=== PATIENT | female | born 1965 | race African-American/Black ===

== ENCOUNTER 2018-01-16 12:29 | Emergency (ER) | payer MEDICARE, MEDICAID ==
[~2018-01-16] VITALS: Ht 175.3 cm; Wt 128.3 kg
[2018-01-16 13:21] VITALS: BP 160/90
[2018-01-16] MEDS ORDERED: rabies immune globulin/PF 150 unit/ml inj IMVAC STA (13:40)
[2018-01-16] MEDS ORDERED: rabies vaccine (PCEC)/PF 2.5 unit kit IMVAC ONE (13:40)
[2018-01-19] MEDS ORDERED: rabies vaccine (PCEC)/PF 2.5 unit kit IMVAC ONE (09:15)
== END 2018-01-16 15:03 | disposition home or self-care (01) ==
LOC: ER 12:29
DX: S60.361A Insect bite (nonvenomous) of right thumb, initial encounter (principal); W53.11XA Bitten by rat, initial encounter; Y93.89 Activity, other specified; Y92.89 Other specified places as the place of occurrence of the external cause; Y99.8 Other external cause status
CPT/HCPCS: 90375; 90471; 90715; 96372; 99284

== ENCOUNTER 2018-01-19 09:09 | Emergency (ER) | payer MEDICARE, MEDICAID ==
[~2018-01-19] VITALS: Ht 175.3 cm; Wt 130.0 kg
[2018-01-19 09:47] VITALS: BP 138/79
[2018-01-19] MEDS ORDERED: rabies vaccine (PCEC)/PF 2.5 unit kit IMVAC ONE (09:55)
== END 2018-01-19 10:23 | disposition home or self-care (01) ==
LOC: ER 09:09
DX: Z23 Encounter for immunization (principal)
CPT/HCPCS: 90471; 90675; 99283

== ENCOUNTER 2018-01-23 07:41 | Emergency (ER) | payer MEDICARE, MEDICAID ==
[2018-01-23 07:57] VITALS: BP 142/95
[2018-01-23] MEDS ORDERED: ZOL50T PO (08:00)
[2018-01-23] MEDS ORDERED: rabies vaccine (PCEC)/PF 2.5 unit kit IMVAC ONE (08:15)
== END 2018-01-23 08:40 | disposition home or self-care (01) ==
LOC: ER 07:41
DX: Z23 Encounter for immunization (principal)
CPT/HCPCS: 90471; 90675; 99283

== ENCOUNTER 2018-01-30 11:37 | Emergency (ER) | payer MEDICARE, MEDICAID ==
[~2018-01-30] VITALS: Ht 175.3 cm; Wt 130.0 kg
[~2018-01-30 11:37] MED LIST: ZOL50T PO
[2018-01-30 11:41] VITALS: BP 139/80
[2018-01-30] MEDS ORDERED: rabies vaccine (PCEC)/PF 2.5 unit kit IMVAC ONE (12:35)
== END 2018-01-30 12:50 | disposition home or self-care (01) ==
LOC: ER 11:37
DX: Z23 Encounter for immunization (principal); Z86.73 Personal history of transient ischemic attack (TIA), and cerebral infarction without residual deficits; Z98.890 Other specified postprocedural states; Z79.899 Other long term (current) drug therapy
CPT/HCPCS: 90471; 90675; 99283

== ENCOUNTER 2018-05-03 08:42 | Emergency (ER) | payer MEDICARE, MEDICAID ==
[~2018-05-03] VITALS: Ht 175.3 cm; Wt 127.3 kg
[2018-05-03 09:06] VITALS: BP 162/94
[2018-05-03] MEDS ORDERED: CARB15DR91 EACH EAR (09:18)
[2018-05-03] MEDS ORDERED: benzonatate 100mg capsule PO ONE (09:20)
[2018-05-03] MEDS ORDERED: ibuprofen tablet 400 MG TABLET PO ONE (09:20)
[2018-05-03] MEDS ORDERED: pseudoephedrine 30mg tablet PO ONE (09:20)
== END 2018-05-03 09:35 | disposition home or self-care (01) ==
LOC: ER 08:43
DX: J06.9 Acute upper respiratory infection, unspecified (principal); H61.23 Impacted cerumen, bilateral; Z86.73 Personal history of transient ischemic attack (TIA), and cerebral infarction without residual deficits
CPT/HCPCS: 99282

== ENCOUNTER 2018-05-20 09:56 | Emergency (ER) | payer MEDICARE, MEDICAID ==
[~2018-05-20] VITALS: Ht 175.3 cm; Wt 130.0 kg
[~2018-05-20 09:56] MED LIST changes: +CARB15DR91 EACH EAR
[2018-05-20 10:04] VITALS: BP 129/70
[2018-05-20 10:37] LABS: URINE HCG NEGATIVE (NEG)
[2018-05-20 10:40] LABS: COLOR,URINE YELLOW (Yellow); GLUCOSE, URINE NEGATIVE (Neg); KETONES,URINE TRACE mg/dl (Neg); LEUKOCYTE ESTERASE ,URINE NEGATIVE (Neg); NITRITES, URINE NEGATIVE (Neg); OCCULT BLOOD,URINE NEGATIVE (Neg); PROTEIN,URINE NEGATIVE (Neg); UROBILINOGEN,URINE 0.2 E.U/dL (0.2-1.0)
[2018-05-20 10:42] LABS: UA COLLECTION TYPE CLN CATCH MIDSTREAM
[2018-05-20 10:43] LABS: CLARITY,URINE SLIGHTLY CLOUDY (Clear)
[2018-05-20 10:46] LABS: BACTERIA,URINE 1+ /HPF (Neg); MUCUS STRANDS FEW /LPF (Neg); RBC,URINE NONE SEEN /HPF (0-2); SQUAMOUS EPITHELIAL CELL,UR MANY /LPF (FEW); WBC,URINE 0-4 /HPF (0-4)
[2018-05-20 12:25] LABS: BASOPHILS % (AUTO) 0.3 % (0-1); EOSINOPHILS # (AUTO) 0.1 X10'3 (0-0.9); EOSINOPHILS % (AUTO) 1.2 % (0-6); HEMATOCRIT 35.3 % (35.0-45.0); HEMOGLOBIN 11.3 g/dl (12.0-16.0); LYMPHOCYTES # (AUTO) 1.8 X10'3 (1.1-4.8); LYMPHOCYTES % (AUTO) 17.3 % (21-51); MEAN CORPUSCULAR HEMOGLOBIN 24.1 PG (27.0-31.0); MEAN CORPUSCULAR VOLUME 75.2 FL (78-98); MEAN PLATELET VOLUME 10.6 FL (7.4-10.4); MONOCYTES # (AUTO) 0.1 X10'3 (0-0.9); MONOCYTES % (AUTO) 0.8 % (2-12); NEUTROPHILS # (AUTO) 8.4 X10'3 (1.8-7.7); NEUTROPHILS % (AUTO) 80.4 % (42-75); PLATELET COUNT 303 X10'3 (140-440); RED CELL DISTRIBUTION WIDTH 19.4 % (11.5-14.5); WHITE BLOOD COUNT 10.4 X10'3 (4.5-11.0)
[2018-05-20 12:34] LABS: PARTIAL THROMBOPLASTIN TIME 26 SECONDS (22-32)
[2018-05-20 12:40] LABS: ALANINE AMINOTRANSFERASE 13 U/L (12-78); ALBUMIN 3.1 G/DL (3.4-5.0); ALBUMIN/GLOBULIN RATIO 0.7 (1.1-1.5); ALKALINE PHOSPHATASE 113 IU/L (46-116); ANION GAP 11 (8-16); ASPARTATE AMINO TRANSFERASE 20 U/L (10-37); BILIRUBIN,TOTAL 0.2 MG/DL (0.1-1.0); BLOOD UREA NITROGEN 9 MG/DL (7-18); BUN/CREATININE RATIO 11.4 (6.6-38.0); CHLORIDE 104 MMOL/L (99-107); CREATININE 0.79 MG/DL (0.40-0.90); GLUCOSE 97 MG/DL (70-104); POTASSIUM 3.8 MMOL/L (3.5-5.1); SODIUM 137 MMOL/L (135-145); TOTAL CARBON DIOXIDE 21.7 MMOL/L (24-32); TOTAL PROTEIN 7.4 G/DL (6.4-8.2); eGFR > 90 ML/MIN
[2018-05-20 13:10] LABS: PLATELET ESTIMATE NORMAL
[2018-05-20 13:15] LABS: ANISOCYTOSIS 2+; HYPOCHROMASIA 1+; LARGE PLATELETS FEW
[2018-05-20 13:16] LABS: MICROCYTOSIS 1+
== END 2018-05-20 13:10 | disposition home or self-care (01) ==
LOC: ER 09:56
DX: R42 Dizziness and giddiness (principal); R53.83 Other fatigue; R11.0 Nausea; R51 Headache; R63.0 Anorexia; Z86.73 Personal history of transient ischemic attack (TIA), and cerebral infarction without residual deficits; Z98.890 Other specified postprocedural states; Z79.899 Other long term (current) drug therapy
CPT/HCPCS: 36415; 70450; 71045; 80053; 81001; 81025; 84484; 85025; 85610; 85730; 93005; 99285

== ENCOUNTER 2018-05-23 02:14 | Emergency (ER) | payer MEDICARE, MEDICAID ==
[~2018-05-23] VITALS: Ht 175.3 cm; Wt 109.3 kg
[2018-05-23] MEDS ORDERED: LORazepam 1 MG tablet PO ONE (03:50)
[2018-05-23] MEDS ORDERED: ZOLP5TAB2 PO (04:09)
[2018-05-23 04:14] VITALS: BP 159/95
== END 2018-05-23 04:17 | disposition home or self-care (01) ==
LOC: ER 02:14
DX: F41.9 Anxiety disorder, unspecified (principal); R45.0 Nervousness; I25.2 Old myocardial infarction; F32.9 Major depressive disorder, single episode, unspecified; Z86.73 Personal history of transient ischemic attack (TIA), and cerebral infarction without residual deficits; Z98.890 Other specified postprocedural states; Z79.899 Other long term (current) drug therapy
CPT/HCPCS: 99284

== ENCOUNTER 2021-10-24 13:02 | Emergency (ER) | payer MEDICARE, MEDICAID ==
[~2021-10-24] VITALS: Ht 175.3 cm; Wt 150.0 kg
[~2021-10-24 13:02] MED LIST changes: +SERT-153 PO; -ZOL50T PO; +ZOLP5TAB2 PO
[2021-10-24] MEDS ORDERED: morphine 2 MG/ML inj. syringe IV PRN (15:00)
[2021-10-24] MEDS ORDERED: ketorolac tromethamine 15mg/ml inj. IV ONE (16:05)
[2021-10-24] MEDS ORDERED: CYCL-1 PO (16:25)
[2021-10-24 17:00] VITALS: BP 140/80
== END 2021-10-24 17:02 | disposition home or self-care (01) ==
LOC: ER 13:02
DX: S30.0XXA Contusion of lower back and pelvis, initial encounter (principal); S09.90XA Unspecified injury of head, initial encounter; R51.9 Headache, unspecified; I25.10 Atherosclerotic heart disease of native coronary artery without angina pectoris; E78.00 Pure hypercholesterolemia, unspecified; F32.A Depression, unspecified; Z86.73 Personal history of transient ischemic attack (TIA), and cerebral infarction without residual deficits; Z98.890 Other specified postprocedural states; Z79.899 Other long term (current) drug therapy; W19.XXXA Unspecified fall, initial encounter; Y93.89 Activity, other specified; Y92.89 Other specified places as the place of occurrence of the external cause; Y99.8 Other external cause status
CPT/HCPCS: 70450; 72125; 72128; 96374; 96375; 99284; J1885; J2270

== ENCOUNTER 2021-12-29 08:47 | Emergency (ER) | payer MEDICARE, MEDICAID ==
[~2021-12-29] VITALS: Ht 175.3 cm; Wt 100.0 kg
[~2021-12-29 08:47] MED LIST changes: +CYCL-1 PO
--- NOTE | 2021-12-29 09:37 | NUR ---
provider at bedside.
[2021-12-29] MEDS ORDERED: ibuprofen tablet 400 MG TABLET PO ONE (10:00)
[2021-12-29 10:26] VITALS: BP 137/97
== END 2021-12-29 10:27 | disposition home or self-care (01) ==
LOC: ER 08:47
DX: F07.81 Postconcussional syndrome (principal); I25.10 Atherosclerotic heart disease of native coronary artery without angina pectoris; E78.00 Pure hypercholesterolemia, unspecified; I25.2 Old myocardial infarction; Z86.73 Personal history of transient ischemic attack (TIA), and cerebral infarction without residual deficits; Z98.891 History of uterine scar from previous surgery; Z79.899 Other long term (current) drug therapy; Z59.00 Homelessness unspecified
CPT/HCPCS: 99281

== ENCOUNTER 2022-08-08 07:20 | Emergency (ER) | payer MEDICARE, MEDICAID ==
[~2022-08-08] VITALS: Ht 175.3 cm; Wt 142.0 kg
[2022-08-08 08:22] LABS: BASOPHILS # (AUTO) 0.1 X10'3 (0-0.2); EOSINOPHILS # (AUTO) 0.1 X10'3 (0-0.9); EOSINOPHILS % (AUTO) 1.5 % (0-6); HEMATOCRIT 41.4 % (35.0-45.0); HEMOGLOBIN 13.2 g/dl (12.0-16.0); LYMPHOCYTES # (AUTO) 1.8 X10'3 (1.1-4.8); LYMPHOCYTES % (AUTO) 20.6 % (21-51); MEAN CORPUSCULAR HEMOGLOBIN 26.5 PG (27.0-31.0); MEAN CORPUSCULAR HGB CONC 31.8 g/dL (33.0-36.5); MEAN CORPUSCULAR VOLUME 83.4 FL (78-98); MEAN PLATELET VOLUME 9.4 FL (7.4-10.4); MONOCYTES # (AUTO) 0.5 X10'3 (0-0.9); MONOCYTES % (AUTO) 5.7 % (2-12); NEUTROPHILS # (AUTO) 6.1 X10'3 (1.8-7.7); NEUTROPHILS % (AUTO) 71.2 % (42-75); PLATELET COUNT 264 X10'3 (140-440); RED BLOOD COUNT 4.97 X10'6 (4.20-5.60); RED CELL DISTRIBUTION WIDTH 16.9 % (11.5-14.5); WHITE BLOOD COUNT 8.6 X10'3 (4.5-11.0)
--- NOTE | 2022-08-08 08:35 | NUR ---
I agree w/ RN Troy's assessment
[2022-08-08 08:38] LABS: ALANINE AMINOTRANSFERASE 14 U/L (12-78); ALBUMIN 3.3 G/DL (3.4-5.0); ALBUMIN/GLOBULIN RATIO 0.8 (1.1-1.5); ALKALINE PHOSPHATASE 121 IU/L (46-116); ANION GAP 5 (8-16); ASPARTATE AMINO TRANSFERASE 18 U/L (10-37); BILIRUBIN,TOTAL 0.4 MG/DL (0.1-1.0); BLOOD UREA NITROGEN 7 MG/DL (7-18); BUN/CREATININE RATIO 8.2 (6.6-38.0); CALCIUM 9.4 MG/DL (8.5-10.1); CHLORIDE 104 MMOL/L (99-107); CREATININE 0.85 MG/DL (0.40-0.90); GLUCOSE 102 MG/DL (70-104); LIPASE 93 U/L (73-393); POTASSIUM 3.8 MMOL/L (3.5-5.1); SODIUM 137 MMOL/L (135-145); TOTAL CARBON DIOXIDE 28.1 MMOL/L (24-32); TOTAL PROTEIN 7.7 G/DL (6.4-8.2); eGFR 84 ML/MIN
[2022-08-08 08:47] LABS: CLARITY,URINE CLOUDY (Clear); COLOR,URINE RED (Yellow); GLUCOSE, URINE NEGATIVE (Neg); KETONES,URINE TRACE mg/dl (Neg); LEUKOCYTE ESTERASE ,URINE SMALL (Neg); OCCULT BLOOD,URINE LARGE (Neg); PH,URINE 7.5 (4.8-8.0); PROTEIN,URINE 100 mg/dl (Neg); URINE HCG NEGATIVE (NEG); UROBILINOGEN,URINE 0.2 E.U/dL (0.2-1.0)
[2022-08-08 08:48] LABS: UA COLLECTION TYPE VOIDED
[2022-08-08 08:51] LABS: NITRITES, URINE NEGATIVE (Neg)
[2022-08-08 08:53] LABS: BACTERIA,URINE 1+ /HPF (Neg); MUCUS STRANDS NONE SEEN /LPF (Neg); RBC,URINE TNTC /HPF (0-2); SQUAMOUS EPITHELIAL CELL,UR MODERATE /LPF (FEW); WBC CLUMPS,URINE MODERATE /HPF (NEGATIVE)
[2022-08-08] MEDS ORDERED: cephalexin 500mg capsule PO ONE (09:20)
[2022-08-08] MEDS ORDERED: ibuprofen 200mg tablet PO ONE (11:35)
[2022-08-08 11:51] VITALS: BP 148/85
== END 2022-08-08 11:54 | disposition home or self-care (01) ==
LOC: ER 07:20
DX: N93.9 Abnormal uterine and vaginal bleeding, unspecified (principal); R22.9 Localized swelling, mass and lump, unspecified; I25.10 Atherosclerotic heart disease of native coronary artery without angina pectoris; E78.00 Pure hypercholesterolemia, unspecified; F32.A Depression, unspecified; Z98.890 Other specified postprocedural states; Z86.73 Personal history of transient ischemic attack (TIA), and cerebral infarction without residual deficits; Z79.899 Other long term (current) drug therapy
CPT/HCPCS: 36415; 76830; 76856; 80053; 81001; 81025; 83690; 85025; 87088; 93976; 99284

== ENCOUNTER 2023-06-29 21:32 | Emergency (ER) | payer MEDICARE, MEDICAID ==
[~2023-06-29] VITALS: Ht 182.9 cm; Wt 90.9 kg
[2023-06-29] MEDS ORDERED: normal saline 1000ML IV soln IVB ONE (22:25)
[2023-06-29] MEDS ORDERED: ondansetron/PF 4mg/2ml inj IV ONE (22:30)
[2023-06-29] MEDS ORDERED: morphine 4 MG/ML inj SYRINge IV ONE (22:30)
--- NOTE | 2023-06-29 22:59 | NUR ---
Ortega ([facility]) [phone]
[2023-06-30] LABS: HEMOGLOBIN 12.4 g/dl (12.0-16.0)
[2023-06-30] MEDS ORDERED: glycopyrrolate 0.2mg/ml inj IV ONE
[2023-06-30 00:03] LABS: BASOPHILS # (AUTO) 0.1 X10'3 (0-0.2); BASOPHILS % (AUTO) 0.4 % (0-1); EOSINOPHILS % (AUTO) 0.1 % (0-6); HEMATOCRIT 38.4 % (35.0-45.0); LYMPHOCYTES # (AUTO) 1.6 X10'3 (1.1-4.8); LYMPHOCYTES % (AUTO) 12.8 % (21-51); MEAN CORPUSCULAR HEMOGLOBIN 26.3 PG (27.0-31.0); MEAN CORPUSCULAR HGB CONC 32.2 g/dL (33.0-36.5); MEAN CORPUSCULAR VOLUME 81.7 FL (78-98); MONOCYTES # (AUTO) 0.8 X10'3 (0-0.9); MONOCYTES % (AUTO) 6.6 % (2-12); NEUTROPHILS # (AUTO) 10.1 X10'3 (1.8-7.7); NEUTROPHILS % (AUTO) 80.1 % (42-75); PLATELET COUNT 292 X10'3 (140-440); RED BLOOD COUNT 4.71 X10'6 (4.20-5.60); RED CELL DISTRIBUTION WIDTH 17.6 % (11.5-14.5); WHITE BLOOD COUNT 12.6 X10'3 (4.5-11.0)
[2023-06-30 00:17] LABS: ALANINE AMINOTRANSFERASE 14 U/L (12-78); ALBUMIN 3.2 G/DL (3.4-5.0); ALBUMIN/GLOBULIN RATIO 0.7 (1.1-1.5); ALKALINE PHOSPHATASE 146 IU/L (46-116); ANION GAP 8 (8-16); ASPARTATE AMINO TRANSFERASE 12 U/L (10-37); BILIRUBIN,TOTAL 0.3 MG/DL (0.1-1.0); BLOOD UREA NITROGEN 6 MG/DL (7-18); BUN/CREATININE RATIO 5.3 (10.0-20.0); CALCIUM 9.2 MG/DL (8.5-10.1); CHLORIDE 104 MMOL/L (99-107); CREATININE 1.13 MG/DL (0.40-0.90); GLUCOSE 123 MG/DL (70-104); POTASSIUM 3.7 MMOL/L (3.5-5.1); SODIUM 139 MMOL/L (135-145); TOTAL CARBON DIOXIDE 27.1 MMOL/L (24-32); TOTAL PROTEIN 7.8 G/DL (6.4-8.2); eCRCL 64 ML/MIN; eGFR 60 ML/MIN
[2023-06-30] MEDS ORDERED: iohexol 300mg/ml 100ml inj. ONE (00:36)
[2023-06-30 00:46] LABS: PROTHROMBIN TIME 10.3 SECONDS (9.0-12.0)
[2023-06-30 03:07] VITALS: BP 130/80; PULSE 90; RESP 16; TEMP 97.9; O2SAT 100
== END 2023-06-30 03:12 | disposition home or self-care (01) ==
LOC: ER 21:33
DX: R10.9 Unspecified abdominal pain (principal); K92.1 Melena; I11.0 Hypertensive heart disease with heart failure; Z86.2 Personal history of diseases of the blood and blood-forming organs and certain disorders involving the immune mechanism; Z98.890 Other specified postprocedural states; Z79.899 Other long term (current) drug therapy
CPT/HCPCS: 36415; 74177; 80053; 84145; 85025; 85610; 96361; 96374; 96375; 99285; J2270; J2405; J3490; J7030; Q9967

== ENCOUNTER 2024-01-17 05:55 | Emergency (ER) | payer MEDICARE, MEDICAID ==
[~2024-01-17] VITALS: Ht 175.3 cm; Wt 129.6 kg
[2024-01-17 06:09] VITALS: BP 148/98; PULSE 102; TEMP 97.5; O2SAT 99
[2024-01-17] MEDS ORDERED: ketorolac trometh inj. 60 MG/2 ML VIAL IM ONE (09:30)
[2024-01-17] MEDS ORDERED: AMOX-117 PO (09:33)
[2024-01-17] MEDS ORDERED: ketorolac tromethamine 15mg/ml inj. IM ONE (09:35)
[2024-01-17 09:42] VITALS: RESP 16
[2024-01-17] MEDS: ketorolac tromethamine 15mg/ml inj. IM ONE (09:42)
== END 2024-01-17 10:18 | disposition home or self-care (01) ==
LOC: ER 05:56
DX: K04.7 Periapical abscess without sinus (principal); K02.9 Dental caries, unspecified; I25.10 Atherosclerotic heart disease of native coronary artery without angina pectoris; E78.00 Pure hypercholesterolemia, unspecified; Z86.73 Personal history of transient ischemic attack (TIA), and cerebral infarction without residual deficits; I25.2 Old myocardial infarction; D64.9 Anemia, unspecified
CPT/HCPCS: 96372; 99283; J1885